=== PATIENT | female | born 1970 | race Caucasian/White ===

== ENCOUNTER → 2019-01-15 | Outpatient (CLI) | payer OTHER ==
[~2019-01-15] MED LIST: BUSPAR PO; CELEBREX 200 M200 M1 PO; ESTRACE1 MG; ESTRACE2 MG PO; ESTRADIOL 1 MG T1 M1 PO; HYDROCODON-ACE1 EAC8 PO; LEVOTHYROXIN0.125 M1 PO; LISINOPRIL20 MG PO; LUPRON DEPOT3.75 M2; MAXIDE PO; NORCO 5-325 TA1 EACH PO; PERCOCET 10-321 EACH PO; RESTORIL30 MG PO; SUMATRIPTAN; SYNTHROID150 MCG; VITAMIN D 5050000 I1 PO; YASMIN 28 TABL1 EACH; ZANAFLEX4 M2 PO; ZOFRAN ODT4 MG PO; ZOFRAN4 MG PO; ZYRTEC10 M2 PO
--- NOTE | ~2019-01-15 | PAINCON ---
[address] [address] PAIN MANAGEMENT CONSULTATION Name: MEL SANTOS Room: [facility] SOFYA Fabian.#: [id number] Admission: 01/15/19 Attend Phys: Cathryn Almendarez MD Discharge: Date of : 66 Report #: [id number] THIS REPORT FOR: //name// CC: Cathryn Varner DATE OF SERVICE: 01/15/2019 CHIEF COMPLAINT: Low back pain with some pain radiating down into the left leg and chronic back pain. HISTORY OF PRESENT ILLNESS: The patient is a 48-year-old female who has been referred to the pain clinic for evaluation. The patient has a long history of back problems. She has undergone treatment for this some years ago. Over the last 5 years, she notes that the pain continues to be problematic. 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 Notes that this long stretches of standing can exacerbate pain and discomfort. Notes that she is having some pain that radiates down the left portion of her leg involving her heel. There is a burning, stabbing sensation with it. She has had injections in the past to some degree that were helpful. Has undergone physical therapy. Continues to try to do physical activities, which had been provided in the past. Feels that the Percocet medication is helpful. She takes about 4 tablets daily as well as muscle relaxant, tizanidine. She feels that her pain overall is about 50% better. She has noted a flareup of the pain and discomfort in the feet, but recently has returned to the pain clinic for evaluation and possible treatment. She describes it as steady, rhythmic, periodic, burning in her leg and aching with sharp, tender discomfort. Rates it as a 5/10 at this point. Denies any bowel or bladder dysfunction. ALLERGIES: PENICILLIN, ERYTHROMYCIN, AZITHROMYCIN, TAPE. CURRENT MEDICATIONS: Levothyroxine 0.125 mg, lisinopril 20 mg, oxycodone/acetaminophen 10/325 one p.o. q.i.d., tizanidine 4 mg t.i.d. to q.i.d. PAST MEDICAL HISTORY: History of Graves' disease status post thyroidectomy, ulcerative colitis, degenerative osteoarthritis, obesity status post Lap-Band placement, lumbar radiculopathy, disk bulge at L4-L5 with mass effect on the thecal sac, epidural lipomatosis producing significant central spinal canal stenosis at L5-S1, and hypertension. PAST SURGICAL HISTORY: Cholecystectomy, hysterectomy, status post repair of left Achilles tendon avulsion, salpingo-oophorectomy with hysterectomy, status post thyroidectomy. SOCIAL HISTORY: She is a pharmacist. She [place] [address] PAIN MANAGEMENT CONSULTATION Name: MEL SANTOS Room: [facility]#: [id number] Admission: 01/15/19 Attend Phys: Cathryn Almendarez MD Discharge: Date of : 66 Report #: [id number] REVIEW OF SYSTEMS: Generally good health, wears glasses, wakens at night to urinate, joint pain, muscle cramps, back pain, history of thyroid disease. LABORATORY DATA: 1. No new laboratory values are available, but past MRI indicates large disk at L4-L5 with mass effect on the thecal sac. 2. Diffuse disk bulge at L3-L4 and L5-S1. 3. Epidural lipomatosis producing significant central spinal canal stenosis at L5-S1. Multiple bilateral degenerative facet arthropathy of the lumbar spine. 4. Degenerative osteoarthritis. PAIN CLINIC ASSESSMENT/PQRS: 1. The patient has osteoarthritic changes in the low back area as described below. 2. Rheumatoid arthritis. The patient is not being treated for rheumatoid arthritis. 3. Height 5 feet 5 inches, weight 240 pounds, BMI is 39. 4. Vital signs: Blood pressure 120/78, heart rate 71, respiratory rate 16, room air saturation 97%, temperature 98.5. 5. Pain intensity today 10/23. 6. Fall history: The patient has not fallen in the last 3 months. 7. Blood thinner. The patient is not on a blood thinning medication. 8. Hypertension. The patient is being treated for hypertension. 9. Opioid medicines greater than 6 weeks. The patient has been receiving her medications from her primary physician over the last few years. She states that he is going to change his practice and will not be able to provide her medications. 10. Risk assessment tool, low for opioid use. 11. Functional assessment tool. 12. Recreational drug use. The patient denies use of recreational drugs. 13. Tobacco: The patient denies use of tobacco. 14. Alcohol: The patient denies frequent use of alcoholic beverages. PHYSICAL EXAMINATION: GENERAL: The patient is a well-developed, well-nourished white female. Appears her stated age. She is alert and oriented x 3. Her affect is appropriate. Speech is fluent. HEENT: Normocephalic, atraumatic. Extraocular eye muscles intact. Sclerae nonicteric. Mucous membranes are moist. NECK: Without adenopathy or JVD. HEART: Regular rate. S1, S2. LUNGS: Clear to auscultation. ABDOMEN: Protuberant. Bowel sounds present. EXTREMITIES: Upper extremity muscle strength is judged to be 5/5 for the major muscle groups in the upper extremity. Deep tendon reflexes are +1 at the biceps bilaterally. Sensory output is normal in the upper extremity. The patient [facility] [address] [place] [address] PAIN MANAGEMENT CONSULTATION Name: DANIELLEEML Room: [facility]#: [id number] Admission: 01/15/19 Attend Phys: Cathryn Almendarez MD Discharge: Date of : 66 Report #: [id number] without significant scoliosis, kyphosis or lordosis. Lower back area. Forward bending to 90 degrees caused some slight pulling in the back of her legs, some discomfort in the left posterior L5-S1 dermatomal distribution. Left and right lateral rotation were not very problematic, but the patient did note some soreness in the low back area. Lumbar extension caused some increased pain in the low back area. Palpation in the left as well as the right posterior superior iliac spine near the gluteus joselin and latissimus dorsi produce pain and discomfort in the area of these trigger points. Deep tendon reflexes are absent at the knees bilaterally, absent at the ankles bilaterally. Anterior and posterior spring tests were negative. Gautam sign showed some signs of discomfort. The patient felt that this was in the upper portion of her back near the trigger points. ASSESSMENT: 1. Chronic low back pain with history of lumbar radiculopathy. 2. Myofascial pain with trigger points in the midline, low back area. 3. History of L5-S1 nerve root irritation with L5-S1 nerve root irritation on the left with pain radiating down from the buttocks into the ankle area. 4. Bilateral degenerative facet osteoarthritis of the lumbar spine. 5. History of Graves' disease status post thyroidectomy. 6. Ulcerative colitis. 7. Degenerative osteoarthritis. 8. Obesity status post Lap-Band placement. 9. Lumbar radiculopathy, disk bulge at L4-L5 with mass effect on the thecal sac. 10. Epidural lipomatosis producing significant central spinal canal stenosis at L5-S1. RECOMMENDATION: We discussed treatment options with the patient. Risks and benefits of epidural injections were discussed. At this point, the patient feels that the myofascial pain is the most problematic that in her low back area. She would like to consider treatment of this area. We will consider trigger point injections to the left and right posterior superior iliac spine area on her return. We have rewritten the patient's medications. She is receiving Percocet 4 tablets daily and tizanidine from her primary. She states that she only has about 10 days more of this medication. A script for tizanidine 4 mg 1 p.o. q.4-6h, #120 tablets and oxycodone 10/325 one p.o. 4-6 hours. The patient states that she keeps her medications in a guarded area. She is a pharmacist. She is aware of the possible complications of long-term opioid use, which could be problems with tolerance as well as with dependency. We would like to thank you for letting us participate in her care. We hope she continues to improve. By: [id number]. Artemio Almendarez MD /nt
== END ==
LOC: M.PC 08:00
DX: M47.26 Other spondylosis with radiculopathy, lumbar region (principal); M48.07 Spinal stenosis, lumbosacral region; I10 Essential (primary) hypertension; M19.90 Unspecified osteoarthritis, unspecified site; E89.0 Postprocedural hypothyroidism; E66.9 Obesity, unspecified; Z88.1 Allergy status to other antibiotic agents; Z90.710 Acquired absence of both cervix and uterus; Z79.899 Other long term (current) drug therapy; Z79.891 Long term (current) use of opiate analgesic; Z88.0 Allergy status to penicillin; Z91.09 Other allergy status, other than to drugs and biological substances; Z90.49 Acquired absence of other specified parts of digestive tract

== ENCOUNTER → 2019-02-12 | Outpatient (CLI) | payer OTHER ==
--- NOTE | ~2019-02-12 | PAINCON ---
[address] [address] PAIN MANAGEMENT CONSULTATION Name: DANIELLEMEL K Room: [facility] RuiBakari#: [id number] Admission: 02/12/19 Attend Phys: Cathryn Almendarez MD Discharge: Date of : 66 Report #: [id number] THIS REPORT FOR: //name// CC: Cathryn Key DATE OF SERVICE: 02/12/2019 CHIEF COMPLAINT: Back pain, here for injections in the muscle area. HISTORY: The patient is a 48-year-old female who has been seen in the pain clinic because of chronic low back pain. She has had back pain for a number of years. Has noted some increased pain and discomfort in her low back area. She notes increased pain after prolonged standing. 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. She feels that the Percocet medications are helpful. She has noted some increased pain and has returned today for renewal of her medications as well as a trigger point injection to the 2 areas in the low back, which are most problematic. ALLERGIES: PENICILLIN, ERYTHROMYCIN, AZITHROMYCIN, TAPE. CURRENT MEDICATIONS: Levothyroxine 0.125 mg, lisinopril 20 mg, oxycodone 10/325 one p.o. q.i.d., tizanidine 4 mg t.i.d/q.i.d. PAIN CLINIC ASSESSMENT/PQRS: 1. The patient has osteoarthritic changes in her low back area. She has not been treated for rheumatoid arthritis. 2. Height 5 feet 5 inches, weight 235 pounds, BMI is 39.2. 3. Vital signs: Blood pressure 123/87, heart rate 73, respiratory rate 16, room air saturation is 97%, and temperature 98.5. 4. Pain intensity 1/10 with significant soreness with movement in the low back area. 5. History of fall. The patient has not fallen in the last 3 months. 6. Blood thinner. The patient is not on a blood thinning medication. 7. Hypertension. The patient is being treated for hypertension. 8. Opioids greater than 6 weeks. The patient has received medications from one source, the pain clinic. 9. Risk assessment tool, low for opioid use. 10. Functional assessment tool. 11. Recreational drug use. The patient denies any recreational drug use. 12. Tobacco: The patient denies use of tobacco. 13. Alcohol: The patient denies frequent use of alcoholic beverages. PHYSICAL EXAMINATION: GENERAL: The patient is a well-developed, well-nourished white female. Appears her stated age, slightly obese. She is alert and oriented x 3[place] [address] PAIN MANAGEMENT CONSULTATION Name: MEL SANTOS Room: [facility]#: [id number] Admission: 02/12/19 Attend Phys: Cathryn Almendarez MD Discharge: Date of : 66 Report #: [id number] appropriate. Speech is fluent. HEENT: Normocephalic, atraumatic. Extraocular eye muscles intact. NECK: Without adenopathy or JVD. HEART: Regular rate. S1, S2. LUNGS: Clear to auscultation. ABDOMEN: Nontender. Bowel sounds present. EXTREMITIES: Upper extremity muscle strength judged to be 5/5 for the major muscle groups in the upper extremity. The patient without significant scoliosis, kyphosis or lordosis. Palpation in the low back area in the midline at approximately L5, and the mid paraspinous area is tender to palpation. The patient has greater pain and discomfort in the left as well as the right paraspinous areas at the L5-S1 area. This is near the posterior superior iliac spine area on both these 2 areas of pain supercede that in the midline area. IMPRESSION: 1. Myofascial pain, low back area, left and right posterior superior iliac spine area. Myofascial trigger points in the low back area. 2. History of L5-S1 nerve root irritation with pain that radiates down to the ankle. 3. Bilateral degenerative facet arthropathy of the lumbar spine. 4. History of Graves' disease, status post thyroidectomy. 5. Ulcerative colitis. 6. Degenerative osteoarthritis. 7. Obesity, status post lap band placement. 8. Lumbar radiculopathy with bulging disk at L4-L5 with mass effect on the thecal sac. 9. Epidural lipomatosis producing significant central spinal canal stenosis at L5-S1. RECOMMENDATIONS: We discussed treatment options with the patient. Risks and benefits of a trigger point injection to the affected areas were discussed. The patient has agreed to proceed. Risks and benefits of the procedure, which could include infection, worsening of pain, no improvement in pain, nerve damage, numbness in the lower extremity for a period of time were discussed and the patient elects to proceed. PROCEDURE NOTE: The patient was taken to the procedure area. She is assisted in getting on the examination table. She is set perpendicular to the table. A chair was placed under her feet. The patient was given a pillow and she leaned forward ____ tie her shoe. Palpation in the left and the right posterior superior iliac spine areas reproduced her pain. Her back was sterilely prepped with a chlorhexidine solution. A trigger point was noted in the left posterior superior iliac spine area near the gluteus joselin and latissimus dorsi. A 25-gauge needle was then advanced. The patient states that this did reproduce her pain and discomfort. Aspiration was negative. Total of 6 mL of 0.5% bupivacaine and 20 mg triamcinolone with 40 mg Depo-[place] [address] PAIN MANAGEMENT CONSULTATION Name: MEL SANTOS Room: [facility]#: [id number] Admission: 02/12/19 Attend Phys: Cathryn Almendarez MD Discharge: Date of : 66 Report #: [id number] contralateral right side was treated in a like fashion. A 25-gauge needle was then advanced to the area of the trigger point near the gluteus joselin and latissimus dorsi. Aspiration was negative. The patient states that this did reproduce her discomfort. A total of 6 mL of 0.5% bupivacaine and 40 mg Depo-Medrol with 20 mg triamcinolone was injected. The patient tolerated the procedure well. She remained in the Pain Clinic for an appropriate amount of time. The patient's script for Percocet 10/325 one p.o. q.i.d. and tizanidine 4 mg one p.o. q. 4-6 hours were written. The patient will call us if she has any concerns. We would like to thank you for letting us participate in her care. Hope she continues to improve. By: [id number]. Artemio Almendarez MD /will
== END | disposition home or self-care (01) ==
LOC: M.PC 04:49
DX: M79.18 Myalgia, other site (principal); M51.16 Intervertebral disc disorders with radiculopathy, lumbar region; M47.26 Other spondylosis with radiculopathy, lumbar region; M48.061 Spinal stenosis, lumbar region without neurogenic claudication; M19.90 Unspecified osteoarthritis, unspecified site; I10 Essential (primary) hypertension; E89.0 Postprocedural hypothyroidism; E66.09 Other obesity due to excess calories; Z88.0 Allergy status to penicillin; Z88.8 Allergy status to other drugs, medicaments and biological substances; Z87.19 Personal history of other diseases of the digestive system; Z79.899 Other long term (current) drug therapy; Z79.891 Long term (current) use of opiate analgesic; Z98.890 Other specified postprocedural states; Z68.39 Body mass index [BMI] 39.0-39.9, adult

== ENCOUNTER → 2019-03-10 | Outpatient (CLI) | payer OTHER ==
[~2019-03-10] MED LIST changes: +FLEXERIL PO; +MEDROLDOSEPACK PO
--- NOTE | 2019-03-12 01:33 | PAINCON ---
[address] [address] PAIN MANAGEMENT CONSULTATION Name: DANIELLEMEL K Room: [facility] VioletteVandana#: [id number] Admission: 03/10/19 Attend Phys: Cathryn Almendarez MD Discharge: Date of : 66 Report #: [id number] THIS REPORT FOR: //name// CC: Cathryn Key DATE OF SERVICE: 03/10/2019 CHIEF COMPLAINT: Mid back pain and some pain in the hips. FOLLOWUP HISTORY: The patient is a 48-year-old female who has been seen in the pain clinic because of chronic low back pain. She has had pain for a number of years. She has noticed an increase in her pain. She underwent trigger point injection at the last visit. She has noticed that her pain level has continued to escalate. It is at a score of 6/10. She describes it as a very severe flare up over the past few days. She is unable to rest, unable to sit comfortably. She is not sure that tizanidine is providing very much muscle relaxation. Feels that the Percocet medications are helpful. She notes that the pain is limiting her ability to engage in activities. 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 She has returned today for the possibility of changes in her medications or other ideas. ALLERGIES: PENICILLIN, ERYTHROMYCIN, AZITHROMYCIN, TAPE. CURRENT MEDICATIONS: Levothyroxine 0.125 mg, lisinopril 20 mg, oxycodone 10/325 one p.o. q.i.d., tizanidine 4 mg 1 p.o. t.i.d./q.i.d. PAIN CLINIC ASSESSMENT AND PQRS: 1. The patient has some osteoarthritic changes in her low back area. She has not been treated for rheumatoid arthritis. 2. Height 5 feet 5 inches, weight 235 pounds, BMI of 39.0. 3. Vital Signs: Blood pressure 117/77, heart rate 93, respiratory rate 16, room air saturation 99%, temperature 98.5. 4. Pain intensity 03/23. 5. Fall history: The patient has not fallen in the last 3 months. 6. Blood thinner. The patient is not on a blood thinning medication. 7. Hypertension. The patient is being treated for hypertension. 8. Opioids greater than 6 weeks. The patient received medication from one source, the pain clinic. 9. Risk assessment tool, low for opioid use. 10. Functional assessment tool. 11. Recreational drug use. The patient denies. 12. Tobacco: The patient denies use of tobacco. 13. Alcohol: The patient denies use of alcoholic beverages. PHYSICAL EXAMINATION: [place] [address] PAIN MANAGEMENT CONSULTATION Name: DANIELLECARMENEmy Webb Room: [facility]#: [id number] Admission: 03/10/19 Attend Phys: Cathryn Almendarez MD Discharge: Date of : 66 Report #: [id number] GENERAL: The patient is a well-developed, well-nourished white female. Appears her stated age. She is slightly obese. She is alert and oriented x 3. Her affect is appropriate. Speech is fluent. HEENT: Normocephalic, atraumatic. Extraocular eye muscles intact. Sclerae nonicteric. Mucous membranes are moist. NECK: Without adenopathy or JVD. HEART: Regular rate. S1, S2. LUNGS: Clear to auscultation. ABDOMEN: Nontender. Bowel sounds present. EXTREMITIES: Upper extremity muscle strength judged to be 5/5 for the major muscle groups in the upper extremity. The patient is without kyphosis, scoliosis or lordosis. Palpation in the midline area of the patient's back at approximately L2, L3, L4 are quite sore to palpation. The patient also complains of some pain and discomfort in her hips. She seems to have less pain and discomfort in the left and right paraspinous areas near L5 and S1. The midline area is most problematic at this juncture. The midline area pain now supercedes that in the left and right paraspinous areas. IMPRESSION: 1. Myofascial pain, low back area, midline area most problematic. Less pain in the posterior superior iliac spine areas. 2. History of L5-S1 nerve root irritation with pain that radiates down into her ankle. 3. Bilateral degenerative facet arthropathy of the lumbar spine. 4. History of Graves' disease, status post thyroidectomy. 5. Ulcerative colitis. 6. Degenerative osteoarthritis. 7. Obesity, status post lap band placement, unable to take nonsteroidal anti-inflammatory medications. 8. Lumbar radiculopathy with bulging disks at L4-L5 with mass effect upon the thecal sac. 9. Epidural lipomatosis producing significant central spinal stenosis at L5-S1. RECOMMENDATIONS: We discussed treatment options with the patient. At this juncture, we will continue with her oxycodone medication. She will take 10 mg 1 p.o. q.i.d. The patient will also try Flexeril 10 mg 1 p.o. t.i.d. She will try a Medrol Dosepak. She will consider whether or not she would like to return with injection in the midline area for the myofascial pain at this juncture. A script for her medications have been written. She has been given a script for a Medrol Dosepak 21 tablets to take as directed. She will also continue with Flexeril 10 mg t.i.d. and note its efficacy. A refill of oxycodone 10/325, total of 120 [place] [address] PAIN MANAGEMENT CONSULTATION Name: MEL SANTOS Room: [facility]#: [id number] Admission: 03/10/19 Attend Phys: Cathryn Almendarez MD Discharge: Date of : 66 Report #: [id number] We would like to thank you for letting us participate in her care. We hope she continues to improve. <ELECTRONICALLY SIGNED> By: Cathryn Almendarez MD 03/12/19 [id number]. Artemio Almendarez MD /JOEL
== END ==
LOC: M.PC 09:38
DX: M51.16 Intervertebral disc disorders with radiculopathy, lumbar region (principal); M48.07 Spinal stenosis, lumbosacral region; M12.88 Other specific arthropathies, not elsewhere classified, other specified site; M79.10 Myalgia, unspecified site; E66.9 Obesity, unspecified; K51.90 Ulcerative colitis, unspecified, without complications; D17.79 Benign lipomatous neoplasm of other sites; Z86.39 Personal history of other endocrine, nutritional and metabolic disease; Z68.39 Body mass index [BMI] 39.0-39.9, adult

== ENCOUNTER → 2019-04-09 | Outpatient (CLI) | payer OTHER ==
--- NOTE | 2019-04-15 14:27 | PAINCON ---
[address] [address] PAIN MANAGEMENT CONSULTATION Name: DANIELLEMEL K Room: [facility] RuiBakari#: [id number] Admission: 04/09/19 Attend Phys: Cathryn Almendarez MD Discharge: Date of : 66 Report #: [id number] THIS REPORT FOR: //name// CC: Cathryn Key DATE OF SERVICE: 04/09/2019 CHIEF COMPLAINT: Mid back pain is improved after the Medrol Dosepak. HISTORY: The patient is a 48-year-old female who has been followed in the pain clinic because of chronic mid back and low back pain. The patient has had pain, which has been problematic for a number of years. She was seen in the pain clinic at the last visit. Her pain level was increased to 6/10. She was provided with a Medrol Dosepak and her medications. She returns today indicating that her pain has improved. It has decreased to 1. Overall, she is happy with the results. Feels like she is close to her baseline. Notes that pain such as standing can had been somewhat problematic. 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 She has returned today for renewal of her medications. ALLERGIES: PENICILLIN, ERYTHROMYCIN, AZITHROMYCIN, TAPE. CURRENT MEDICATIONS: Levothyroxine 0.125 mg, lisinopril 20 mg, oxycodone 10/325 one p.o. q.i.d., tizanidine 4 mg 1 p.o. t.i.d./q.i.d. PAIN CLINIC ASSESSMENT/PQRS: 1. The patient has some osteoarthritic changes in her low back area. She has not been treated for rheumatoid arthritis. 2. Height 5 feet 5 inches, weight 234 pounds, BMI is 38.9. 3. Vital Signs: Blood pressure 107/58, heart rate 100, respiratory rate 16, room air saturation 98%, temperature is 98.2. 4. Pain intensity 10/23. 5. Fall history: The patient has not fallen in the last 3 months. 6. Blood thinner. The patient is not on a blood thinning medication. 7. Hypertension. The patient is being treated for hypertension. 8. Opiates greater than 6 weeks. The [facility]. 9. Risk assessment tool, low for opioid use. 10. Functional assessment tool. 11. Recreational drug use. The patient denies. 12. Tobacco: The patient denies. 13. Alcohol: The patient denies use of alcoholic beverages. PHYSICAL EXAMINATION: GENERAL: The patient is a well-developed, well-[place] [address] PAIN MANAGEMENT CONSULTATION Name: MEL SANTOS Room: [facility]#: [id number] Admission: 04/09/19 Attend Phys: Cathryn Almendarez MD Discharge: Date of : 66 Report #: [id number] her stated age. She is alert and oriented x 3. Her affect is appropriate. Speech is fluent. HEAD, EYES, EARS, NOSE, AND THROAT: Normocephalic, atraumatic. Extraocular eye muscles intact. Sclerae nonicteric. Mucous membranes are moist. NECK: Without adenopathy or JVD. HEART: Regular rate. S1, S2. LUNGS: Clear to auscultation without rhonchi. ABDOMEN: Nontender. Bowel sounds present. EXTREMITIES: Upper extremity muscle strength 5/5 for the major muscle groups in the upper extremity. The patient without significant scoliosis, kyphosis or lordosis. The patient also complains of some discomfort in her hips. Midline area is less problematic at this point. IMPRESSION: 1. Myofascial pain in the low back area, improves with a Medrol Dosepak and rest in activities. 2. History of L5-S1 nerve root irritation with radiation to the ankle. 3. Bilateral degenerative facet arthropathy of lumbar spine. 4. History of Graves' disease, status post thyroidectomy. 5. Ulcerative colitis. 6. Degenerative osteoarthritis. 7. Obesity, status post lap band placement, unable to take nonsteroidal anti-inflammatory medications. 8. Lumbar radicular pain with bulging of disk at L4-L5 with mass effect upon the thecal sac. 9. Epidural lipomatosis producing significant central spinal stenosis at L5-S1. RECOMMENDATIONS: We discussed treatment options with the patient. The patient feels that her medications have been helpful. She notes that the Medrol Dosepak was beneficial. She has noted an improvement in her pain down from 6-1 at this point. She has returned today with the desire to have her medications renewed. She finds that the tizanidine medications have not been very effective for her. She elects to discontinue its use. Feels that the Flexeril medication is helpful for the muscle spasm and would like to have this medication renewed. Finds that Percocet 1 tablet p.o. q.i.d. continues to be helpful. These helped with her pain. Helps her to maintain her job and remain gainfully employed. We will continue with her medications. We will continue use of the complex medication regimen of opioid medications. We would like to thank you for letting us to participate in her care. We hope she continues to improve. <ELECTRONICALLY SIGNED> By: Cathryn Almendarez MD 04/15/19 1427 1630 [id number]. Artemio Almendarez MD /[facility]
== END ==
LOC: M.PC 05:01
DX: M54.16 Radiculopathy, lumbar region (principal); M48.07 Spinal stenosis, lumbosacral region; E66.9 Obesity, unspecified; M19.90 Unspecified osteoarthritis, unspecified site; M79.18 Myalgia, other site

== ENCOUNTER → 2019-05-07 | Outpatient (CLI) | payer OTHER ==
--- NOTE | ~2019-05-07 | PAINCON ---
[address] [address] PAIN MANAGEMENT CONSULTATION Name: CARMEN SANTOSI Tracey Room: [facility] Maxime#: [id number] Admission: 05/07/19 Attend Phys: Cathryn Almendarez MD Discharge: Date of : 66 Report #: [id number] THIS REPORT FOR: //name// CC: Cathryn Key DO DATE OF SERVICE: 05/07/2019 FOLLOWUP COMPLAINT: Here for medication management. HISTORY: The patient is a 48-year-old female who has been followed in the pain clinic because of chronic pain. She has chronic pain in the lower back area. She has had pain, which has been problematic for years. Overall, her pain has been improved with her current medical regimen of Flexeril and Percocet. She has had some exacerbation of her pain, which improved with a Medrol Dosepak. She has had no complications from that. She is being treated for thyroid problems. Feels that there is still some changes and her heart rate reflect some increased tachycardia. She rates her pain as a 2/10. This is pretty good. Notes that the pain becomes more problematic by the time work ends. 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 ALLERGIES: PENICILLIN, ERYTHROMYCIN, AZITHROMYCIN, AND TAPE. CURRENT MEDICATIONS: Levothyroxine 0.125 mg, lisinopril 20 mg, oxycodone 10/325 one p.o. q.i.d., tizanidine 4 mg 1 p.o. t.i.d./q.i.d. PAIN CLINIC ASSESSMENT/PQRS: 1. The patient has some osteoarthritic changes in her low back. She is not being treated for rheumatoid arthritis. 2. Height 5 feet 5 inches, weight 233 pounds, BMI is 38.0. 3. Vital signs: Blood pressure 105/65, heart rate 102, respiratory rate 16, room air saturation 98%, temperature 98.4. 4. Pain intensity 11/23. 5. Fall history: The patient has not fallen in the last 3 months. 6. Blood thinner. The patient is not on a blood thinning medication. 7. Hypertension. The patient is being treated for hypertension. 8. Opioids greater than 6 weeks. The [facility]. 9. Risk assessment tool, low for opioid use. 10. Functional assessment tool. 11. Recreational drug use. The patient denies. 12. Tobacco: The patient denies. 13. Alcohol: The patient denies use of alcoholic beverages. PHYSICAL EXAMINATION: [address] [place] [address] PAIN MANAGEMENT CONSULTATION Name: MEL SANTOS Room: [facility]#: [id number] Admission: 05/07/19 Attend Phys: Cathryn Almendarez MD Discharge: Date of : 66 Report #: [id number] GENERAL: The patient is a well-developed, well-nourished, somewhat obese white female, appears her stated age. She is alert and oriented x 3. Her affect is appropriate. Speech is fluent. HEENT: Normocephalic, atraumatic. Extraocular eye muscles intact. Sclerae nonicteric. Mucous membranes are moist. NECK: Without adenopathy. HEART: Regular rate. S1, S2. Tachycardic at 102. LUNGS: Clear to auscultation without rhonchi or rales. ABDOMEN: Protuberant. Bowel sounds present. EXTREMITIES: Upper extremities without complaint, 5/5 muscle strength. The patient without significant scoliosis, kyphosis, or lordosis. The patient has some pain and discomfort in the lower portion of her back. It involves her hips. There is a midline area that is more problematic. Muscle strength in the lower extremities judged to be 5/5 for the major muscle groups in the lower extremities. IMPRESSION: 1. Myofascial pain, low back area, improves with a Medrol Dosepak and rest. 2. History of L5-S1 nerve root irritation and radiation to the ankle. 3. Bilateral degenerative facet arthropathy of the lumbar spine. 4. History of Graves' disease, status post thyroidectomy. 5. Ulcerative colitis. 6. Degenerative osteoarthritis. 7. Obesity, status post Lap-Band placement, unable to take nonsteroidal anti-inflammatory medication secondary to this procedure. 8. Lumbar radiculopathy with pain and bulging disks at L4-L5 with mass effect upon the thecal sac. 9. Epidural lipomatosis producing significant central spinal stenosis at L5-S1. RECOMMENDATIONS: We discussed treatment options with the patient. She feels that her medications are working reasonably well. She would like to have an additional Medrol Dosepak in the event that her pain reaches a level that has not helped with her current medication. States that this is episodic and would like to just have 1 tablet since she needed. We will write for the Medrol Dosepak. The patient will also continue with Flexeril 10 mg 1 p.o. t.i.d. This is helpful with muscle spasms. She will continue with the oxycodone 10/325 one p.o. t.i.d. as needed for pain control. This helps the patient, will be able to stay gainfully employed. She states she has taken medications as prescribed. She is not having any side effects from the medication. She is alert and aware that opioid medications can become less effective as time goes on, secondary to tolerance. She states that she has taken the medication as prescribed. Keeps her medications in a guarded area. I would like to have her medications renewed this month. A script for her medications of a Medrol Dosepak, Flexeril 10 mg 1 p.o. t.i.d., total of 90 tablets, and Percocet 10/325 one p.o. 4-6 hours [address] [place] [address] PAIN MANAGEMENT CONSULTATION Name: MEL SANTOS Room: [facility]#: [id number] Admission: 05/07/19 Attend Phys: Cathryn Almendarez MD Discharge: Date of : 66 Report #: [id number] tablets have been written. We would like to thank you for letting us participate in her care. We hope she continues to improve. By: 0830 [id number]. Artemio Almendarez MD /[facility]
== END ==
LOC: M.PC 05:09
DX: Z76.0 Encounter for issue of repeat prescription (principal); M54.16 Radiculopathy, lumbar region; M19.90 Unspecified osteoarthritis, unspecified site; E66.9 Obesity, unspecified; I10 Essential (primary) hypertension; Z88.1 Allergy status to other antibiotic agents; Z88.0 Allergy status to penicillin; Z88.8 Allergy status to other drugs, medicaments and biological substances; Z79.891 Long term (current) use of opiate analgesic; Z79.899 Other long term (current) drug therapy

== ENCOUNTER → 2019-06-04 | Outpatient (CLI) | payer OTHER | LOC: M.PC 02:14 | DX: M54.5 Low back pain (principal); M79.604 Pain in right leg; Z79.899 Other long term (current) drug therapy ==

== ENCOUNTER → 2019-07-02 | Outpatient (CLI) | payer OTHER ==
[~2019-07-02] MED LIST changes: +SYNTHROID100 MC1 PO
--- NOTE | 2019-07-06 09:16 | PAINCON ---
[address] [address] PAIN MANAGEMENT CONSULTATION Name: DANIELLEMEL K Room: [facility] Maxime#: [id number] Admission: 07/02/19 Attend Phys: Cathryn Almendarez MD Discharge: Date of : 66 Report #: [id number] THIS REPORT FOR: //name// CC: Cathryn Key DATE OF SERVICE: 07/02/2019 CHIEF COMPLAINT: Here for my medication, they are making some adjustments to my medications because of my Graves' disease. HISTORY: The patient is a 48-year-old female, who has been followed in the pain clinic because of chronic pain. She has pain involving her low back. She feels that her medications for pain are working reasonably well. She rates her pain today as a 2/10. She is contemplating her son's marriage. They will be in the next couple of weeks. She has been putting most of her efforts in that area. She has noted some increase in her heart rate because of the Graves' disease. She denies any new changes or real complaints. She notes that she has pain with sitting, standing, bending, and lifting. Use of medications, are beneficial. CURRENT MEDICATIONS: Levothyroxine 0.125 mg, lisinopril 20 mg, oxycodone 10/325 one p.o. q.i.d., tizanidine 4 mg 1 p.o. t.i.d./q.i.d. ALLERGIES: PENICILLIN, ERYTHROMYCIN, AZITHROMYCIN, AND TAPE. PAIN CLINIC ASSESSMENT AND PQRS: 1. The patient has some osteoarthritic changes involving her back. She is not being treated for rheumatoid arthritis. 2. Pain intensity is 2/10. 3. Fall history: The patient has not fallen in the last 3 months. 4. Blood thinner. The patient is not on a blood thinning medication. 5. Hypertension. The patient is being treated for hypertension. 6. Opioids greater than 6 weeks. The [facility]. 7. Risk assessment tool, low for opioid use. 8. Functional assessment tool. 9. Recreational drug use. The patient denies. 10. Tobacco: The patient denies. 11. Alcohol. The patient denies use of alcoholic beverages. PHYSICAL EXAMINATION: GENERAL: The patient is a slightly obese white female. She appears her stated age. She is alert and oriented x 3. Her affect is appropriate. Speech is fluent. Height is 5 feet 5 inches, weight is 233 pounds, and BMI is 38. VITAL SIGNS: Blood pressure is 116/69, heart rate is 98, respiratory rate is [facility] [address] [place] [address] PAIN MANAGEMENT CONSULTATION Name: DANIELLEMEL K Room: [facility]#: [id number] Admission: 07/02/19 Attend Phys: Cathryn Almendarez MD Discharge: Date of : 66 Report #: [id number] 20, room air saturation is 95%, and temperature is 98.4. HEENT: Normocephalic, atraumatic. Extraocular eye muscles intact. Sclerae nonicteric. Mucous membranes are moist. NECK: Without adenopathy or JVD. HEART: Regular rate. S1, S2. LUNGS: Clear to auscultation without rhonchi or rales. ABDOMEN: Nontender, protuberant. SKIN: Some signs of pigment discoloration, appears to be vitiligo. IMPRESSION: 1. Lumbar radiculopathy with bulging disk at L4-L5 with mass effect upon the thecal sac. 2. Epidural lipomatosis producing significant central canal spinal stenosis at L5-S1. RECOMMENDATIONS: We have discussed treatment options with the patient. At this juncture, she will continue with her medications. She feels her medications are working reasonably well. She is noting some changes in her health regarding the Graves' disease. She states that some changes in her medications are being made. Overall, things are going reasonably well. She has taken the medication as prescribed. 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 She has not shown any addictive behaviors. She is aware that the medications can become less effective over time secondary to development of tolerance. A script for her medications of oxycodone 10 mg/325 one p.o. q.4-6 hours, total of 120 tablets and cyclobenzaprine/Flexeril 10 mg 1 p.o. t.i.d. have been written. We would like to thank you for letting us to participate in her care. We hope she continues to improve. <ELECTRONICALLY SIGNED> By: Cathryn Almendarez MD 07/06/19 0916 0833 [id number]. Artemio Almendarez MD /[facility]
== END ==
LOC: M.PC 05:04
DX: M54.16 Radiculopathy, lumbar region (principal); E88.2 Lipomatosis, not elsewhere classified; Z79.899 Other long term (current) drug therapy; Z88.8 Allergy status to other drugs, medicaments and biological substances

== ENCOUNTER → 2019-07-30 | Outpatient (CLI) | payer OTHER ==
--- NOTE | 2019-08-05 09:09 | PAINCON ---
[address] [address] PAIN MANAGEMENT CONSULTATION Name: MEL SANTOS Room: [facility] VioletteBakariJadeBakari#: [id number] Admission: 07/30/19 Attend Phys: Cathryn Almendarez MD Discharge: Date of : 66 Report #: [id number] THIS REPORT FOR: //name// CC: Cathryn Key DO DATE OF SERVICE: 07/30/2019 CHIEF COMPLAINT: Here for medication renewal. HISTORY: The patient is a 48-year-old female who has been followed in the pain clinic because of chronic low back pain as well as left leg pain. She feels that the medications have been helpful. She notes that prolonged standing on her right leg has been problematic. She does work about half time as a pharmacist. She has found that the use of Medrol Dosepak episodically, has been helpful with pain and discomfort. She also feels that the muscle relaxant, cyclobenzaprine has been beneficial. She feels that overall with her current medical regimen, things are about 50% improved. She does not have any problems with the medications. She does have Graves' disease. Has had some elevated heart rates and continues to follow up with her primary in that regard. ALLERGIES: PENICILLIN, ERYTHROMYCIN, AZITHROMYCIN, AND TAPE. CURRENT MEDICATIONS: Levothyroxine 0.125 mg, lisinopril 20 mg, oxycodone 10/325 one p.o. q.i.d., tizanidine 4 mg 1 p.o. t.i.d./q.i.d. PAIN CLINIC ASSESSMENT/PQRS: 1. The patient has some osteoarthritic changes involving her back. She is not being treated for rheumatoid arthritis. 2. Height 5 feet 5 inches, weight 235 pounds, BMI is 39. 3. Vital signs: Blood pressure is 111/65, heart rate 106, respiratory rate 16, room air saturation is 96%, temperature 97.8. 4. Pain intensity 12/21. 5. Fall history: The patient has not fallen in the last 3 months. 6. Blood thinner. The patient is not on a blood thinning medication. 7. Hypertension. The patient is being treated for hypertension. 8. Opioids greater than 6 weeks. The [facility]. 9. Risk assessment tool, low for opioid use. 10. Functional assessment tool. 11. Recreational drug use. The patient denies. 12. Tobacco: The patient denied. 13. Alcohol. The patient denies frequent use of alcoholic beverages. PHYSICAL EXAMINATION: [address] [place] [address] PAIN MANAGEMENT CONSULTATION Name: MEL SANTOS Room: [facility]#: [id number] Admission: 07/30/19 Attend Phys: Cathryn Almendarez MD Discharge: Date of : 66 Report #: [id number] GENERAL: The patient is a slightly obese white female, appears her stated age. She is alert and oriented x 3. Her affect is appropriate. Speech is fluent. HEENT: Normocephalic, atraumatic. Extraocular eye muscles intact. Sclerae are nonicteric. Mucous membranes are moist. NECK: Without adenopathy or JVD. HEART: Regular rate, somewhat tachycardic at 106. ABDOMEN: Nontender. LUNGS: Clear. SKIN: With discoloration associated with a depigmentation secondary to vitiligo. IMPRESSION: 1. Lumbar radiculopathy with bulging disk at L4-L5 with mass effect upon the thecal sac. 2. Epidural lipomatosis producing significant central canal spinal stenosis at L5-S1. RECOMMENDATIONS: We discussed treatment options with the patient. At this juncture, we will continue with her medications as prescribed. She will continue with Percocet 10 mg 1 p.o. q.i.d. She finds that the cyclobenzaprine is helpful with muscle spasms t.i.d. and the patient takes episodically 4 mg tab of prednisone p.r.n. during the month to help with pain when her pain becomes most problematic. She continues to be followed up with her primary physician regarding her Graves' disease. We will continue with her complex medical management to help control her pain and discomfort. <ELECTRONICALLY SIGNED> By: Cathryn Almendarez MD 08/05/19 0909 0901 1034N. Artemio Almendarez MD /nt
== END ==
LOC: M.PC 04:39
DX: M51.26 Other intervertebral disc displacement, lumbar region (principal); Z88.0 Allergy status to penicillin; Z88.8 Allergy status to other drugs, medicaments and biological substances; Z79.899 Other long term (current) drug therapy

== ENCOUNTER → 2019-08-27 | Outpatient (CLI) | payer OTHER ==
--- NOTE | 2019-08-31 19:22 | PAINCON ---
[address] [address] PAIN MANAGEMENT CONSULTATION Name: DANIELLEMEL K [facility]: [facility] OakesBakariJadeBakari#: [id number] Admission: 08/27/19 Attend Phys: Cathryn Almendarez MD Discharge: Date of : 66 Report #: [id number] THIS REPORT FOR: //name// CC: Cathryn Key DO DATE OF SERVICE: 08/27/2019 CHIEF COMPLAINT: Pain medicine is helpful. HISTORY: The patient is a 48-year-old female who has been followed in the pain clinic. As you recall, she suffers from lumbar radicular pain. She has some spinal stenosis in the lower portion of her back. She has found Flexeril helpful with muscle spasms. She would like to continue with that medication. She is not having any side effects. She has also found Percocet helpful. 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 She feels that her current medical regimen has been helpful. She is able to engage in activities of daily living with less discomfort. Rates her pain as a 2-3 at this point. Overall, she feels that things are about 50% improved with her current regimen. Bending, lifting and twisting are problematic. She had a bad day yesterday. Overall, the past month has been pretty good. She does have a Medrol Dosepak, which she can take on occasion. She did not have to use it this month. ALLERGIES: PENICILLIN, ERYTHROMYCIN, AZITHROMYCIN, TAPE. CURRENT MEDICATIONS: Levothyroxine 0.125 mg, lisinopril 20 mg, oxycodone 10/325 one p.o. q.i.d., tizanidine 4 mg 1 p.o. t.i.d./q.i.d. PAIN CLINIC ASSESSMENT AND PQRS: 1. The patient is not being treated for osteoarthritis or rheumatoid arthritis. She does have some changes in her low back with stenosis. 2. Height 5 feet 5 inches, weight 232 pounds, BMI is 38.8. 3. Vital Signs: Blood pressure 116/78, heart rate 107, respiratory rate 16, room air saturation 98%, temperature 98.2. 4. Pain intensity 2-3/10. 5. Fall history: The patient has not fallen in the last 3 months. 6. Blood thinner. The patient is not on a blood thinning medication. 7. Hypertension. The patient is being treated for hypertension. 8. Opioids greater than 6 weeks. The [facility]. 9. Risk assessment tool, low for opioid use. 10. Functional assessment tool was reviewed. 11. Recreational drug use: [place] [address] PAIN MANAGEMENT CONSULTATION Name: DANIELLECARMEN HELLEREmy Webb Room: [facility]#: [id number] Admission: 08/27/19 Attend Phys: Cathryn Almendarez MD Discharge: Date of : 66 Report #: [id number] 12. Tobacco: The patient denies. 13. Alcohol: The patient denies frequent use of alcoholic beverages. PHYSICAL EXAMINATION: GENERAL: The patient is a well-developed, well-nourished white female. Slightly obese. She is alert and oriented x 3. Her affect is appropriate. Speech is fluent. HEENT: Normocephalic, atraumatic. Extraocular eye muscles intact. Sclerae nonicteric. Mucous membranes are moist. NECK: Without adenopathy or JVD. ABDOMEN: Nontender. LUNGS: Clear to auscultation. SKIN: Shows some discoloration associated with findings consistent with vitiligo. IMPRESSION: 1. Lumbar radiculopathy with bulging disk at L4-L5 with mass effect upon the thecal sac. 2. Epidural lipomatosis producing central spinal stenosis at L1-L2. 3. Hypothyroidism. 4. History of Graves' disease, status post thyroidectomy. 5. Ulcerative colitis. 6. Degenerative osteoarthritis. 7. Obesity, status post lap band placement, unable to use nonsteroidal anti-inflammatory medications. 8. Myofascial pain. RECOMMENDATIONS: We discussed treatment options with the patient. At this juncture, she will continue with her medications. She feels the medications are helpful. She is able to conduct her activities of daily living with less discomfort. We will continue with the Percocet. A script for 120 tablets has been written. The patient will take one tablet p.o. q.4 hours p.r.n. The patient will also continue with Flexeril. She finds that this is helpful with the muscle spasms and myofascial pain, which she is experiencing. We will have the patient return in 1 month. We will continue with the use of complex medical management to help control her pain and discomfort secondary to spinal stenosis and lumbar radiculopathy. <ELECTRONICALLY SIGNED> By: Cathryn Almendarez MD 08/31/19 1922 0850 0934N. Artemio Almendarez MD /nt
== END ==
LOC: M.PC 05:13
DX: M51.16 Intervertebral disc disorders with radiculopathy, lumbar region (principal); M48.061 Spinal stenosis, lumbar region without neurogenic claudication; E03.9 Hypothyroidism, unspecified; K51.90 Ulcerative colitis, unspecified, without complications; M19.90 Unspecified osteoarthritis, unspecified site

== ENCOUNTER → 2019-09-24 | Outpatient (CLI) | payer OTHER ==
--- NOTE | 2019-09-30 13:30 | PAINCON ---
[address] [address] PAIN MANAGEMENT CONSULTATION Name: DANIELLEMEL K Room: [facility] SOFYA OakesBakariJadeBakari#: [id number] Admission: 09/24/19 Attend Phys: Cathryn Almendarez MD Discharge: Date of : 66 Report #: [id number] THIS REPORT FOR: //name// CC: Cathryn Key DATE OF SERVICE: 09/24/2019 CHIEF COMPLAINT: Chronic pain in the low back and down the right leg. HISTORY: The patient is a 48-year-old female who has been followed in the Pain Clinic because of chronic pain. She has returned indicating that her pain is reasonably well controlled at this juncture. She rates her pain as a 2/10. She has not fallen since we saw her last. Still has pain, which is involved the center portion of her low back area. Notes some pain that radiates from her right leg down into the side of her leg. She also has on occasion some pain in the left side. She feels that her medications of Flexeril helpful for muscle spasms. She notes that long standing exacerbates her spinal stenosis. She remains as active as possible. She does work and does quite a bit of standing on her job. This does exacerbate her discomfort to a degree. Does note some burning discomfort down into her leg. She has had no significant changes in her symptoms since the past month. She was returned today with hopes that she will renew her medications. Notes that she is 50-60% improved with her current medical regimen. ALLERGIES: PENICILLIN, ERYTHROMYCIN, AZITHROMYCIN, AND TAPE. CURRENT MEDICATIONS: Levothyroxine 0.125 mg, lisinopril 20 mg, oxycodone 10 mg one p.o. q.i.d., and tizanidine 4 mg 1 p.o. t.i.d. /q.i.d. PAIN CLINIC ASSESSMENT AND PQRS: 1. The patient is not being treated for rheumatoid arthritis. She does have some osteoarthritic changes in her back with stenosis. 2. Height 5 feet 5 inches, weight 234 pounds, BMI is 39. 3. Vital signs: Blood pressure 122/68, heart rate 94, respiratory rate 16, room air saturation 97%, and temperature is 97.3. 4. Pain score 2/10. 5. Fall history: The patient has not fallen in the last 3 months. 6. Blood thinner. The patient is not on a blood thinning medication. 7. Hypertension. The patient is being treated for hypertension. 8. Opioids greater than 6 weeks. The [facility]. 9. Risk assessment tool, low for opioid use. 10. Functional assessment tool, low for opioid use. 11. Recreational drug use: The patient denies. 12. Tobacco: [place] [address] PAIN MANAGEMENT CONSULTATION Name: MEL SANTOS Room: [facility]#: [id number] Admission: 09/24/19 Attend Phys: Cathryn Almendarez MD Discharge: Date of : 66 Report #: [id number] 13. Alcohol: The patient rarely drinks alcoholic beverages. PHYSICAL EXAMINATION: GENERAL: The patient is a well-developed, well-nourished white female. Slightly obese. She is alert and oriented x 3. Her affect is appropriate. Speech is fluent. HEENT: Normocephalic, atraumatic. Extraocular eye muscles intact. The patient is wearing glasses. NECK: Without adenopathy or JVD. ABDOMEN: Nontender. LUNGS: Clear to auscultation. SKIN: Shows some discoloration associated with vitiligo. IMPRESSION: 1. Lumbar radiculopathy in the L4-L5 dermatomal distribution with mass effect upon the thecal sac. 2. Epidural lipomatosus producing spinal stenosis in the central area at L1-L2. 3. Hypothyroidism. 4. History of Graves' disease, status post thyroidectomy. 5. History of ulcerative colitis. 6. Degenerative osteoarthritis. 7. Obesity. 8. Post-lap band placement, unable to use nonsteroidal anti-inflammatory medications. 9. Myofascial pain. RECOMMENDATIONS: We discussed treatment options with the patient. At this juncture, she feels medications are working reasonably well. She has had no complications with them. Things are going well. She has not shown any signs of addiction. She is aware that opioid medications can become less effective as time goes on, secondary development of tolerance. Overall, things are going reasonably well. She is able to engage in activities of daily living with less discomfort. Feels things are 50-60% improved with her current medical regimen. She is aware that 70,000 people as a result of overdose last year. She keeps her medications in a guarded area. She has returned today for renewal. A script for her medications of Percocet 10 mg one p.o. every 4-6 hours, total of 120 have been written. The patient will also continue with cyclobenzaprine 10 mg 1 p.o. t.i.d., total of 90 tablets have been written. We would like to thank you for letting us participate in her care. We hope she continues to improve. <ELECTRONICALLY SIGNED> By: Cathryn Almendarez MD 09/30/19 [id number]. Artemio Almendarez MD /will
== END ==
LOC: M.PC 05:25
DX: M54.16 Radiculopathy, lumbar region (principal); E03.9 Hypothyroidism, unspecified; M19.90 Unspecified osteoarthritis, unspecified site; M79.18 Myalgia, other site; E66.9 Obesity, unspecified

== ENCOUNTER → 2019-10-13 | Outpatient (CLI) | payer OTHER ==
[~2019-10-13] MED LIST changes: +AMITRIPTYLINE H10 M3 PO
--- NOTE | ~2019-10-13 | PAINCON ---
[address] [address] PAIN MANAGEMENT CONSULTATION Name: DANIELLEMEL K Room: [facility] VioletteBakariJadeBakari#: [id number] Admission: 10/13/19 Attend Phys: Cathryn Almendarez MD Discharge: Date of : 66 Report #: [id number] THIS REPORT FOR: //name// CC: Cathryn Key DO DATE OF SERVICE: 10/13/2019 CHIEF COMPLAINT: "The medications were helpful." HISTORY: The patient is a 48-year-old female. She has been followed in the pain clinic. She has chronic pain in her mid and low back area. She has had pain that radiates down into her legs. Pain has gone on for a number of years. Right leg is most problematic at this point. She feels as though there is a "hot iron" in her lower extremity. Sometimes experiences some discomfort in the left leg. She has had some episodes where she feels as though her back is locked up. Does find that Percocet can be helpful with her pain. She rates her pain as a 3/10 today. Also, finds that muscle relaxing medications are beneficial. Feels that her pain is about 50-60% improved with her medications. Has noted some worsening of pain and discomfort over the last few weeks. Activity such as walking, sitting, standing, bending and lifting can be problematic. She does work long hours standing at her job. ALLERGIES: PENICILLIN, ERYTHROMYCIN, AZITHROMYCIN, TAPE. CURRENT MEDICATIONS: Levothyroxine 0.125 mg, lisinopril 20 mg, oxycodone 10 mg one p.o. q.i.d., tizanidine 4 mg 1 t.i.d. to q.i.d. PAIN CLINIC ASSESSMENT AND PQRS: 1. The patient is not being treated for rheumatoid arthritis. She does have osteoarthritic changes in her low back with stenosis. 2. Height 5 feet 5 inches, weight 239 pounds, BMI is 39, height 5 feet 5 inches. 3. Vital signs: Blood pressure 114/72, heart rate 95, respiratory rate 16, room air saturation is 100%, temperature 98.1. 4. Pain intensity 12/21. 5. Fall history: The patient has not fallen in the last 3 months. 6. Blood thinner. The patient is not on a blood thinning medication. 7. Hypertension. The patient is being treated for hypertension. 8. Opioids greater than 6 weeks. The patient received medication from [facility]. 9. Risk assessment tool, low for opioid use. 10. Functional assessment tool, low for opioid use. 11. Recreational drug use: The patient denies. 12. Tobacco: [place] [address] PAIN MANAGEMENT CONSULTATION Name: CARMEN SANTOSEmy Webb Room: [facility]#: [id number] Admission: 10/13/19 Attend Phys: Cathryn Almednarez MD Discharge: Date of : 66 Report #: [id number] 13. Alcohol. The patient rarely drinks alcoholic beverages. PHYSICAL EXAMINATION: GENERAL: The patient is a well-developed, well-nourished, slightly obese white female. Appears her stated age. She is alert and oriented x 3. Her affect is appropriate. Speech is fluent. HEENT: Normocephalic, atraumatic. Extraocular eye muscles intact. The patient is wearing glasses. NECK: Without adenopathy or JVD. HEART: Regular rate. ABDOMEN: Nontender. LUNGS: Generally clear to auscultation. SKIN: Notes some discoloration on her hands, which is associated with vitiligo. IMPRESSION: 1. Lumbar radiculopathy in the L4-L5 dermatomal distribution with mass effect upon the thecal sac. 2. Epidural lipomatosis producing spinal stenosis in the central area at L1-L2. 3. Hypothyroidism. 4. History of Graves' disease, status post thyroidectomy. 5. History of ulcerative colitis. 6. Degenerative osteoarthritis. 7. Obesity. 8. Post-lap band placement, unable to take nonsteroidal anti-inflammatory medications. 9. Myofascial pain. RECOMMENDATIONS: We discussed treatment options with the patient. Risks and benefits of opioid medications were again reviewed. The patient is aware of the possible complication of these medications. They can become less effective as time goes on. The patient has not shown any signs of addiction. She is taking the medications as prescribed. She feels that her pain medications provide 50-60% improvement. Overall, things are going reasonably well and she would like to continue with her medications. She keeps her medications in a guarded area. A script for her medications will be rewritten. The patient will continue with Percocet 1 p.o. 10 mg q. 4-6 hours p.r.n. pain, total of 120 tablets have been provided. The patient will also continue with the muscle relaxant, cyclobenzaprine 10 mg 1 p.o. t.i.d. Total of 90 tablets have been written. We would like to thank you for letting us participate in her care. She will call us if she has any concerns. By: [id number]. Artemio Almendarez MD /nt
== END ==
LOC: M.PC 04:28
DX: M54.16 Radiculopathy, lumbar region (principal); E03.9 Hypothyroidism, unspecified; M19.90 Unspecified osteoarthritis, unspecified site; E66.09 Other obesity due to excess calories; M79.18 Myalgia, other site

== ENCOUNTER → 2019-11-12 | Outpatient (CLI) | payer OTHER ==
[~2019-11-12] MED LIST changes: +AMITRIPTYLINE H25 M2 PO; +HYDROXYZINE HCL50 MG PO; +TREMFYA100 MG/11 SUBQ
--- NOTE | ~2019-11-12 | PAINCON ---
[address] [address] PAIN MANAGEMENT CONSULTATION Name: DANIELLEMEL K Room: [facility] SOFYA Swartz#: [id number] Admission: 11/12/19 Attend Phys: Cathryn Almendarez MD Discharge: Date of : 66 Report #: [id number] THIS REPORT FOR: //name// CC: Cathryn Key DATE OF SERVICE: 11/12/2019 The patient was seen on 1:30. CHIEF COMPLAINT: Here for medication renewal, things are going relatively well and the medication continues to help. HISTORY: The patient is a 48-year-old female who has been followed in the pain clinic because of chronic pain involving her back. The patient has pain that radiates down into her legs. She has had pain and back problems for a number of years. She has undergone epidural steroid injections and found them to be helpful. At this juncture, she feels that her opioid medications continue to be beneficial. 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 She is on new medications Tremfya. This medication has the possibility of decreasing her immune status. She declines an epidural injection at this juncture, because of the diminished immune function. She may consider it again in the future. Finds that the amitriptyline medication is helping with discomfort as well as sleep. She is not having any problems with mentation. She is thinking clearly. The patient finds that the Flexeril is helpful with muscle spasms as well. She has taken the Percocet and finds overall that her medication management is about 70% effective in helping with her pain. Describes pain and discomfort with walking, sitting, standing, bending, and lifting. Use of medications. Use of cold as well as rest are helpful. She stands for long periods of time at work. ALLERGIES: PENICILLIN, ERYTHROMYCIN, AZITHROMYCIN, TAPE. CURRENT MEDICATIONS: Levothyroxine 0.125 mg, lisinopril 20 mg, oxycodone 10 mg 1 p.o. q.i.d., tizanidine 4 mg 1 p.o. t.i.d. to q.i.d., Tremfya IV weekly to monthly. PAIN CLINIC ASSESSMENT/PQRS: 1. The patient is not being treated for rheumatoid arthritis. She does have osteoarthritic changes in her back with stenosis. 2. Height 5 feet 5 inches, weight 248 pounds, BMI is 39.9. 3. Vital signs: Blood pressure 104/72, heart rate 98, respiratory rate 16, room air saturation, temperature 97.9. 4. Pain intensity 10/23. 5. Fall history: The patient has not fallen in the last 3 months. 6. Blood thinner. The patient is not on [place] [address] PAIN MANAGEMENT CONSULTATION Name: DANIELLECARMENEmy Webb Room: [facility]#: [id number] Admission: 11/12/19 Attend Phys: Cathryn Almendarez MD Discharge: Date of : 66 Report #: [id number] 7. Hypertension. The patient is being treated for hypertension. 8. Opioids greater than 6 weeks. The patient receives from [facility]. 9. Risk assessment tool, low for opioid use. 10. Functional assessment tool, low for opioid use. 11. Recreational drug use: The patient denies. 12. Tobacco: The patient denies. 13. Alcohol. The patient denies frequent use of alcoholic beverages except on rare occasion. PHYSICAL EXAMINATION: GENERAL: The patient is a well-developed, well-nourished white female. Appears her stated age. She is alert and oriented x 3. Her affect is appropriate. Speech is fluent. HEAD, EYES, EARS, NOSE, AND THROAT: Normocephalic, atraumatic. Extraocular eye muscles intact. Sclerae nonicteric. Mucous membranes are moist. NECK: Without adenopathy or JVD. HEART: Regular rate. ABDOMEN: Nontender. LUNGS: Clear. SKIN: The patient has some discoloration on her hands associated with . IMPRESSION: 1. Lumbar radiculopathy at the L4-L5 dermatomal distribution with mass effect upon the thecal sac. 2. History of epidural lipomatosis producing spinal stenosis in the central area at L1-L2. 3. Hypothyroidism. 4. History of Graves' disease, status post thyroidectomy. 5. History of ulcerative colitis. 6. Degenerative osteoarthritis. 7. Obesity. 8. Post-lap band placement, unable to take nonsteroidal anti-inflammatory medications. 9. Myofascial pain. RECOMMENDATIONS: We discussed treatment options with the patient. At this juncture, we will continue with her amitriptyline. She will continue with 25 mg at bedtime. She will also continue with Flexeril 10 mg 1 p.o. t.i.d. The patient will continue with oxycodone 10 mg one p.o. every 4-6 hours p.r.n. The patient takes 100 mg monthly for psoriasis. Hydroxyzine 50 mg every 6 hours p.r.n. The patient will call us if she has any concerns. She is aware that opioid medications can become less effective as time goes on. She does not show any signs of addiction. 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 [facility] [address] [place] [address] PAIN MANAGEMENT CONSULTATION Name: MEL SANTOS Room: [facility]#: [id number] Admission: 11/12/19 Attend Phys: Cathryn Almendarez MD Discharge: Date of : 66 Report #: [id number] We would like to thank you for letting us to participate in her care. We hope she continues to improve. By: 0930 [id number]. Artemio Almendarez MD /PMT
== END ==
LOC: M.PC 08:20
DX: M54.16 Radiculopathy, lumbar region (principal); E03.9 Hypothyroidism, unspecified; M19.90 Unspecified osteoarthritis, unspecified site; E66.9 Obesity, unspecified; M79.18 Myalgia, other site

== ENCOUNTER → 2019-12-10 | Outpatient (CLI) | payer OTHER ==
[~2019-12-10] MED LIST changes: +BUSPIRONE HCL10 MG PO; +PERCOCET 10-321 EAC1 PO
--- NOTE | 2019-12-29 08:57 | PAINCON ---
[address] [address] PAIN MANAGEMENT CONSULTATION Name: CARMEN SANTOSI Tracey Room: [facility] Rui.#: [id number] Admission: 12/10/19 Attend Phys: Cathryn Almendarez MD Discharge: Date of : 66 Report #: [id number] THIS REPORT FOR: //name// cc: Anisa Key Stephanie P. DO ~ THIS REPORT FOR: //name// CC: Cathryn Key DO DATE OF SERVICE: 12/10/2019 PRIMARY CARE PHYSICIAN: Anisa Key DO CHIEF COMPLAINT: Chronic back pain. HISTORY OF PRESENT ILLNESS: The patient is a 48-year-old female, who has been followed in the pain clinic. As you may recall, she has chronic low back pain. Continues to have pain that radiates down into her legs. This has been problematic for a number of years. She has undergone epidural steroid injections. She also is treated for psoriasis. She has been told that she has inverted psoriasis. She feels that her immune function is somewhat diminished. She does not want an epidural steroid injection at this point. Overall, she feels that with her current management, her pain is about 70% improved. She would like to continue with her medications. Pain is worse with walking, standing, climbing stairs, bending and lifting. She notes that cold pack as well as rest can be beneficial to the low back area and pain, which she experiences down her left leg. Things are going reasonably well. She rates her pain as a 1/10 today. She is contemplating going on vacation to [place]. ALLERGIES: PENICILLIN, ERYTHROMYCIN, AZITHROMYCIN, TAPE. CURRENT MEDICATIONS: Levothyroxine 0.125 mg, lisinopril 20 mg, oxycodone 10 mg 1 p.o. q.i.d., tizanidine 4 mg 1 p.o. t.i.d. to q.i.d., Tremfya IV weekly to monthly. PAIN CLINIC ASSESSMENT/PQRS: 1. The patient is not being treated for rheumatoid arthritis. She does have osteoarthritic changes in her back with stenosis. 2. Height 5 feet 5 inches, weight 239 pounds, BMI is 39.9. 3. Vital signs: Blood pressure 132/90, heart rate 104, respiratory rate 16, room air saturation 95%, temperature 99.2. 4. Pain intensity 1/10. 5. Fall history: The patient has not fallen in the last 3 months. 6. Blood thinner. The patient is not on a blood[place] [address] PAIN MANAGEMENT CONSULTATION Name: MEL SANTOS Room: [facility]#: [id number] Admission: 12/10/19 Attend Phys: Cathryn Almendarez MD Discharge: Date of : 66 Report #: [id number] 7. Hypertension. The patient is being treated for hypertension. 8. Opioids greater than 6 weeks. 9. The patient receives her [facility]. 10. Risk assessment tool: Low for opioid use. 11. Functional assessment tool: Low for opioid. 12. Recreational drug use: The patient denies. 13. Tobacco: The patient denies. 14. Alcohol. The patient denies frequent use of alcoholic beverages except on rare occasions. PHYSICAL EXAMINATION: GENERAL: The patient is a well-developed, well-nourished white female. Appears her stated age. She is alert and oriented x 3. Her affect is appropriate. Speech is fluent. HEENT: Normocephalic, atraumatic. Extraocular eye muscles are intact. Sclerae are nonicteric. Mucous membranes are moist. NECK: Without adenopathy or JVD. HEART: Regular rate. ABDOMEN: Nontender. LUNGS: Clear. SKIN: The patient has some discoloration in her hand, which may be vitiligo. IMPRESSION: 1. Lumbar radiculopathy, L4-L5 dermatomal distribution, with mass effect upon the thecal sac. 2. History of epidural lipomatosis producing spinal stenosis in the central area at L1-L2. 3. Hypothyroidism. 4. History of Graves disease, status post thyroidectomy. 5. History of ulcerative colitis. 6. Degenerative osteoarthritis. 7. Obesity. 8. Post laparoscopic band placement, unable to take nonsteroidal anti-inflammatory medications. 9. Myofascial pain. RECOMMENDATIONS: We discussed treatment options with the patient. At this juncture, we will continue with her medications. She feels that these medications overall are helpful. She is about 70% improved. She is not having any significant mental problems. She is able to think clearly. 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 The patient has been treated for the psoriasis with Tremfya. She will continue with Flexeril 10 mg 1 p.o. t.i.d. A script for oxycodone 10 mg 1 p.o. q.4-6 hours have been provided. The patient will also use Elavil 25 mg 2 tablets at bedtime to help with pain as well as relaxation. [place] [address] [place] [address] PAIN MANAGEMENT CONSULTATION Name: MEL SANTOS Room: [facility]#: [id number] Admission: 12/10/19 Attend Phys: Cathryn Almendarez MD Discharge: Date of : 66 Report #: [id number] We would like to thank you for letting us participate in her care. She will call us if she has any concerns. Hopefully, she will reconsider traveling to [place] given the coronavirus outbreak that is prevalent. We would like to thank you for letting us participate in her care. We hope she continues to improve. <ELECTRONICALLY SIGNED> By: Cathryn Almendarez MD 12/29/19 [id number]. Artemio Almendarez MD /nt
== END ==
LOC: M.PC 08:05
DX: M54.12 Radiculopathy, cervical region (principal); E03.9 Hypothyroidism, unspecified; M19.90 Unspecified osteoarthritis, unspecified site; E66.09 Other obesity due to excess calories; M79.18 Myalgia, other site; Z79.891 Long term (current) use of opiate analgesic

== ENCOUNTER → 2020-01-07 | Outpatient (CLI) | payer OTHER ==
--- NOTE | 2020-01-08 09:01 | PAINCON ---
[address] [address] PAIN MANAGEMENT CONSULTATION Name: MEL SANTOS Room: [facility] Rui.#: [id number] Admission: 01/07/20 Attend Phys: Cathryn Almendarez MD Discharge: Date of : 66 Report #: [id number] THIS REPORT FOR: //name// cc: Anisa Key Stephanie P. DO ~ THIS REPORT FOR: //name// CC: Cathryn Key DO DATE OF SERVICE: 01/07/2020 The patient was seen on 01/06, by Dr. Artemio Almendarez. PRIMARY PHYSICIAN: Anisa Key DO CHIEF COMPLAINT: My pain is little bit worse because I have been working longer hours standing on my feet. HISTORY: The patient is a 49-year-old female, who has been followed in the pain clinic. She has a history of chronic back pain. She has pain that radiates down into her legs. This has been problematic for a number of years. Epidural steroid injections have been tried. The patient also has psoriasis. She has been told that she has inverted psoriasis. She declines an epidural steroid injection at this point. Feels that her current medications of amitriptyline, Flexeril, and Percocet have been helpful. She rates her pain as a 1/10 today. Sitting, walking, standing, bending, and lifting can exacerbate her discomfort. She has returned today for renewal of the medications. ALLERGIES: PENICILLIN, ERYTHROMYCIN, AZITHROMYCIN, AND TAPE. CURRENT MEDICATIONS: Levothyroxine 0.125 mg, lisinopril 20 mg, oxycodone 10 mg p.o. q.i.d., tizanidine 4 mg 1 p.o. t.i.d. to q.i.d., and Tremfya IV weekly to monthly. PAIN CLINIC ASSESSMENT AND PQRS: 1. The patient is not being treated for rheumatoid arthritis. The patient does have some osteoarthritic changes in her back with stenosis. 2. Height 5 feet 5 inches, weight 243 pounds, and BMI is 40.0. 3. Vital signs: Blood pressure 115/74, heart rate 83, respiratory rate 16, room air saturation 97%, and temperature is 97.3. 4. Pain intensity is 1/10. 5. Fall history. The patient has not fallen in the last 3 months. 6. Blood thinner. The patient is not on a blood thinning medication. 7. Hypertension. The patient is being [place] [address] PAIN MANAGEMENT CONSULTATION Name: DANIELLECARMENEmy Webb Room: [facility]#: [id number] Admission: 01/07/20 Attend Phys: Cathryn Almendarez MD Discharge: Date of : 66 Report #: [id number] 8. Opioids greater than 6 weeks. The patient received medication from [facility], the pain clinic. 9. Risk assessment tool, low for opioid use. 10. Functional assessment tool reviewed. 11. Recreational drug use. The patient denies. 12. Tobacco. The patient denies. 13. Alcohol. The patient denies frequent use of alcoholic beverages. PHYSICAL EXAMINATION: GENERAL: The patient is a well-developed, well-nourished white female. Appears her stated age. She is alert and oriented x3. Her affect is appropriate. Speech is fluent. HEENT: Normocephalic, atraumatic. Extraocular eye muscles are intact. Sclerae nonicteric. Mucous membranes are moist. NECK: Without adenopathy or JVD. HEART: Regular rate. ABDOMEN: Nontender. LUNGS: Generally clear. SKIN: Some discoloration of her hands, which may be consistent with vitiligo. IMPRESSION: 1. Lumbar radiculopathy, L4-L5 dermatomal distribution with mass effect on the thecal sac. 2. History of epidural lipomatosus producing spinal stenosis in the central canal at L1-L2. 3. Hypothyroidism. 4. History of Graves' disease, status post thyroidectomy. 5. History of ulcerative colitis. 6. Degenerative osteoarthritis. 7. Obesity. 8. Post laparoscopic band placement, unable to use nonsteroidal anti-inflammatory medication. 9. Myofascial pain. RECOMMENDATIONS: We discussed treatment options with the patient. At this juncture, we will continue with her medication. She feels that the amitriptyline medication in conjunction with Percocet continued to be helpful. We will renew her medications. The patient is aware that opioid medications can become less effective as time goes on secondary to development of tolerance. She is not showing signs of problems with her medications. She is using the medication as prescribed. She has been taking the medications in an director of golf fashion. At this juncture, we will have the patient follow up in a bimonthly method. She has been given a script for 2 months of medications. She will call us if she has any concerns. We would like to thank you for letting us participate in her care. We hope she [address] [address] PAIN MANAGEMENT CONSULTATION Name: MEL SANTOS Room: [facility]#: [id number] Admission: 01/07/20 Attend Phys: Cathryn Almendarez MD Discharge: Date of : 66 Report #: [id number] continues to improve. Thank you very much for proofreading the dictation. <ELECTRONICALLY SIGNED> By: Cathryn Almendarez MD 01/08/20 0901 [id number]. Artemio Almendarez MD /nt
== END ==
LOC: M.PC 02:46
DX: M54.16 Radiculopathy, lumbar region (principal); E03.9 Hypothyroidism, unspecified; M47.819 Spondylosis without myelopathy or radiculopathy, site unspecified; E66.9 Obesity, unspecified; M79.18 Myalgia, other site; Z87.11 Personal history of peptic ulcer disease; Z87.39 Personal history of other diseases of the musculoskeletal system and connective tissue

== ENCOUNTER → 2020-02-25 | Outpatient (CLI) | payer OTHER ==
--- NOTE | ~2020-02-25 | PAINCON ---
[address] [address] PAIN MANAGEMENT CONSULTATION Name: DANIELLEMEL K Room: [facility] Rui.#: [id number] Admission: 02/25/20 Attend Phys: Cathryn Almendarez MD Discharge: Date of : 66 Report #: [id number] THIS REPORT FOR: //name// cc: Anisa Key Stephanie P. DO ~ THIS REPORT FOR: //name// CC: Cathryn Key DATE OF SERVICE: 02/25/2020 PRIMARY CARE PHYSICIAN: Anisa Key DO CHIEF COMPLAINT: "Medication is working pretty well, still having some pain in the back and legs." HISTORY: The patient is a 49-year-old female who has been followed in the pain clinic because of chronic pain. She has a history of chronic back pain. Her pain continues to be problematic. It continues to radiate down into her legs. She has had epidural steroid injections. She finds that her current medical regimen is helpful. She would like to continue with the medication. She rates her pain as 1/10. She feels things are about 50% improved with her current medical regimen. These medications make her life more tolerable. She is able to work longer hours. She notes that prolonged sitting, standing, climbing stairs, lifting and bending is problematic. She has used medications as prescribed. She is not having any problems. She has returned to the pain clinic for renewal of her medications. ALLERGIES: PENICILLIN, ERYTHROMYCIN, AZITHROMYCIN, TAPE. CURRENT MEDICATIONS: Levothyroxine 0.125 mg, lisinopril 20 mg, oxycodone 10 mg q.i.d., tizanidine 4 mg 1 p.o. t.i.d. to q.i.d., Tremfya IV weekly to monthly. PAIN CLINIC ASSESSMENT/PQRS: 1. The patient is not being treated for rheumatoid arthritis. The patient does have some osteoarthritic changes in her back with stenosis. 2. Height 5 feet 5 inches, weight 241 pounds, BMI is 40. 3. Vital signs: Blood pressure 114/73, heart rate 117, respiratory rate 18, room air saturation 99%, temperature 99. 4. Pain intensity 10/23. 5. Fall history: The patient has not fallen in the last 3 months. 6. Blood thinner. The patient is not on a blood thinning medication. 7. Hypertension. The patient is being treated for hypertension. 8. Opioids greater than 6 weeks. The patient receives medication [place] [address] PAIN MANAGEMENT CONSULTATION Name: MEL SANTOS Room: [facility]#: [id number] Admission: 02/25/20 Attend Phys: Cathryn Almendarez MD Discharge: Date of : 66 Report #: [id number] 9. Risk assessment tool, low for opioid use. 10. Functional assessment tool reviewed. 11. Recreational drug use. The patient denies. 12. Tobacco: The patient denies. 13. Alcohol: The patient denies frequent use of alcoholic beverages. PHYSICAL EXAMINATION: GENERAL: The patient is a well-developed, well-nourished white female. Appears her stated age. She is alert and oriented x 3. Her affect is appropriate. Speech is fluent. HEENT: Normocephalic, atraumatic. Extraocular eye muscles intact. Sclerae nonicteric. Mucous membranes are moist. The patient is wearing a mask. NECK: Without adenopathy or JVD. HEART: Regular rate. ABDOMEN: Nontender. LUNGS: Clear. SKIN: Some discoloration of her hands, which is consistent with vitiligo. IMPRESSION: 1. Lumbar radiculopathy, L4-L5 dermatomal distribution with mass effect on the thecal sac. 2. History of epidural lipomatosis producing spinal stenosis in the central canal at L1-L2. 3. Hypothyroidism. 4. History of Graves' disease, status post thyroidectomy. 5. History of ulcerative colitis. 6. Degenerative osteoarthritis. 7. Obesity. 8. Post laparoscopic band placement, unable to use nonsteroidal anti-inflammatory medications. 9. Myofascial pain. RECOMMENDATIONS: We discussed treatment options with the patient. At this juncture, we will continue with her medications. Medications continue to be helpful. She will call us if she has any problems with her medications. She is aware that opioid medications can become less effective over time because of development of tolerance. The patient is unable to take nonsteroidal anti-inflammatory medications on a regular basis because of her GI history. We will renew her medications of oxycodone 10 mg one p.o. q. 4-6 hours. The patient will also continue with amitriptyline 25 mg 2 tablets at bedtime. She will take Flexeril 10 mg 1 p.o. t.i.d. as needed for muscle spasms. She feels that her pain is about 50% improved with her current regimen. [facility] [address] [facility] [place] [address] PAIN MANAGEMENT CONSULTATION Name: MEL SANTOS Room: [facility].#: [id number] Admission: 02/25/20 Attend Phys: Cathryn Almendarez MD Discharge: Date of : 66 Report #: [id number] We would like to thank you for letting us participate in her care. She will continue to stay in sheltering at home given the COVID-19 pandemic. By: [id number]. Artemio Almendarez MD /JOEL
== END ==
LOC: M.PC 08:16
DX: M54.16 Radiculopathy, lumbar region (principal); M79.604 Pain in right leg; M79.605 Pain in left leg; E03.9 Hypothyroidism, unspecified; M19.90 Unspecified osteoarthritis, unspecified site; M79.18 Myalgia, other site; I10 Essential (primary) hypertension; F11.20 Opioid dependence, uncomplicated; E66.9 Obesity, unspecified; Z86.39 Personal history of other endocrine, nutritional and metabolic disease; Z87.19 Personal history of other diseases of the digestive system; Z46.51 Encounter for fitting and adjustment of gastric lap band; Z88.0 Allergy status to penicillin; Z88.5 Allergy status to narcotic agent; Z88.8 Allergy status to other drugs, medicaments and biological substances; Z79.899 Other long term (current) drug therapy

== ENCOUNTER → 2020-07-07 | Outpatient (CLI) | payer OTHER ==
[~2020-07-07] MED LIST changes: +MS CONTIN15 MG PO; +VITAMIN D PO
--- NOTE | 2020-07-21 09:35 | PAINCON ---
[address] [address] PAIN MANAGEMENT CONSULTATION Name: CAREMN SANTOSI Tracey [id number] Admission: 07/07/20 Attend Phys: Cathryn Almendarez MD Discharge: Date of : 66 Report #: [id number] THIS REPORT FOR: //name// cc: Anisa Key Stephanie P. DO ~ THIS REPORT FOR: //name// CC: Cathryn Key DO DATE OF SERVICE: 07/07/2020 CHIEF COMPLAINT: Medications are still helpful having some mid to low back pain. HISTORY: The patient is a 52-year-old female who has been followed in the pain clinic. She does have chronic pain involving her back. She notes that there is pain that radiates down her back into the left leg. This has been ongoing for a number of years. She has mid and low back discomfort. The patient was provided with morphine to help with her pain control in the past visit. She did not feel that that medication really did a whole lot. She elects not to take it any longer. She is considering a gastric sleeve for weight loss. She did have a band in place. That failed. She does have pain and discomfort in her hip. She had an x-ray that showed some onset of arthritis. Rates her pain as a 2/10 with her current medical regimen. Notes that activities, walking, sitting, standing, lifting and bending can be problematic. Cold, rest and medications, improve her discomfort. ALLERGIES: PENICILLIN, ERYTHROMYCIN, AZITHROMYCIN, TAPE. CURRENT MEDICATIONS: Levothyroxine 0.125 mg, lisinopril 20 mg, oxycodone 10 mg q.i.d., tizanidine 4 mg 1 p.o. t.i.d. to q.i.d., Tremfya IV weekly to monthly, amitriptyline 25 mg 2 tablets at bedtime. The patient is using Flexeril 10 mg t.i.d., Celebrex 200 mg daily. PAIN CLINIC ASSESSMENT AND PQRS: 1. The patient is not being treated for rheumatoid arthritis. The patient does have some osteoarthritic changes in her back with stenosis. 2. Height 5 feet 5 inches, weight 249 pounds, BMI is 41.9. 3. Vital Signs: Blood pressure 127/74, heart rate 99, respiratory rate 18, room air saturation 100%. 4. Pain intensity 98.7. 5. Pain score 2/10. 6. Fall history. The patient has not fallen in the last 3 months. 7. Blood thinner. The patient is not on [place] [address] PAIN MANAGEMENT CONSULTATION Name: DANIELLECARMENEmy Webb Room: [facility]#: [id number] Admission: 07/07/20 Attend Phys: Cathryn Almendarez MD Discharge: Date of : 66 Report #: [id number] 8. Hypertension. The patient is being treated for hypertension. 9. Opioids greater than 6 weeks. The patient receives medication from the pain clinic. 10. Risk assessment tool, low for opioid use. 11. Functional assessment tool reviewed. 12. Recreational drug use. The patient denies. 13. Tobacco: The patient denies. 14. Alcohol. The patient denies use of alcoholic beverages. PHYSICAL EXAMINATION: GENERAL: The patient is a well-developed, well-nourished, somewhat obese white female, appears her stated age. She is alert and oriented x 3. Her affect is appropriate. Speech is fluent. HEENT: Normocephalic, atraumatic. Extraocular eye muscles intact. Sclerae nonicteric. Mucous membranes are moist. The patient is wearing facial covering. HEART: Regular rate. ABDOMEN: Nontender. LUNGS: Generally clear. SKIN: Some discoloration of her hands consistent with vitiligo. IMPRESSION: 1. Lumbar radiculopathy, L4-L5 dermatomal distribution with mass effect on the thecal sac. 2. History of lumbar epidural lipomatosis producing spinal stenosis in the central canal at L1-L2. 3. ____. 4. History of Graves' disease, status post thyroidectomy. 5. History of ulcerative colitis. 6. Degenerative osteoarthritis. 7. Obesity. 8. Post-laparoscopic band placement. 9. Myofascial pain. RECOMMENDATIONS: We discussed treatment options with the patient. Risks and benefits of her medication regimen of opioids were discussed. The patient is aware that these medications can become less effective as time goes on. She has taken her medication as prescribed. She is aware that certain patients have become addicted to these medications and have as a result of overdosing with other medications. She feels her medications are helpful. She would like to continue with their use. She is contemplating a gastric sleeve to help with her weight loss. She did have a bandage in place and that did not work very well. [address] [address] PAIN MANAGEMENT CONSULTATION Name: MEL SANTOS Room: [facility]#: [id number] Admission: 07/07/20 Attend Phys: Cathryn Almendarez MD Discharge: Date of : 66 Report #: [id number] We would like to thank you for letting us participate in her care. We hope she continues to improve. <ELECTRONICALLY SIGNED> By: Cathryn Almendarez MD 07/21/20 0935 1020 0030Cathryn Almendarez MD /nt
== END ==
LOC: M.PC 09:17
PROVIDERS: ATTEND Anesthesiology Pain Medicine
DX: M54.16 Radiculopathy, lumbar region (principal); M79.10 Myalgia, unspecified site; E66.9 Obesity, unspecified; M19.90 Unspecified osteoarthritis, unspecified site; E89.0 Postprocedural hypothyroidism; Z87.19 Personal history of other diseases of the digestive system; Z86.39 Personal history of other endocrine, nutritional and metabolic disease; Z88.8 Allergy status to other drugs, medicaments and biological substances; Z79.899 Other long term (current) drug therapy

== ENCOUNTER → 2020-09-01 | Outpatient (CLI) | payer OTHER ==
--- NOTE | 2020-09-05 11:03 | PAINCON ---
[address] [address] PAIN MANAGEMENT CONSULTATION Name: MEL SANTOS [id number] Admission: 09/01/20 Attend Phys: Cathryn Almendarez MD Discharge: Date of : 66 Report #: [id number] THIS REPORT FOR: //name// cc: Anisa Key Stephanie P. DO ~ CC: Cathryn Key DATE OF SERVICE: 09/01/2020 CHIEF COMPLAINT: Here for medications. I am still thinking about undergoing the gastric sleeve. HISTORY: The patient is a 49-year-old female who has been followed in the pain clinic because of chronic back pain. Still has pain that radiates down into her legs. Left leg is most problematic. She rates her pain as 3-4/10. She has noted some pain on the right side over the last 2-3 days. Feels that the oxycodone, amitriptyline and Flexeril are helpful. She is using Celebrex only on a p.r.n. basis because of her GI problem and continued to be efficacious. She would like to have them renewed today. ALLERGIES: PENICILLIN, ERYTHROMYCIN, AZITHROMYCIN, TAPE. CURRENT MEDICATIONS: Levothyroxine 0.125 mg, lisinopril 20 mg, oxycodone 10 mg q.i.d., tizanidine 4 mg t.i.d. to q.i.d., Tremfya IV weekly to monthly, amitriptyline 25 mg 2 tablets at bedtime. The patient is using Flexeril 10 mg t.i.d., Celebrex 200 mg p.r.n. PAIN CLINIC ASSESSMENT AND PQRS: 1. The patient is not being treated for rheumatoid arthritis. She does have some osteoarthritic changes in her back with stenosis. 2. Height 5 feet 5 inches, weight 249 pounds, BMI is 41. 3. Vital Signs: Blood pressure is 120/88, heart rate 86, respiratory rate 16, room air saturation is 100%, temperature 97.4. 4. Pain intensity, 3-01/21. 5. Fall history. The patient has not fallen in the last 3 months. 6. Blood thinner. The patient is not on a blood thinning medication. 7. Hypertension. The patient is being treated for hypertension. 8. Opioids greater than 6 weeks. The patient receives medication from the pain clinic. 9. Risk assessment tool, low for opioid use. 10. Functional assessment tool, reviewed. 11. Recreational drug use. The patient denies. 12. Tobacco. The patient denies. 13. Alcohol. The patient [place] [address] PAIN MANAGEMENT CONSULTATION Name: MEL SANTOS Room: [facility]#: [id number] Admission: 09/01/20 Attend Phys: Cathryn Almendarez MD Discharge: Date of : 66 Report #: [id number] PHYSICAL EXAMINATION: GENERAL: The patient is a well-developed, well-nourished, white female. She is somewhat obese. She is alert and oriented x 3. Her affect is appropriate. Speech is fluent. HEENT: Normocephalic, atraumatic. Extraocular eye muscles intact. Sclerae nonicteric. Mucous membranes are moist. The patient is wearing a facial covering. NECK: Without adenopathy or JVD. HEART: Regular rate. LUNGS: Clear. ABDOMEN: Protuberant, nontender. SKIN: The patient has some discoloration on her hands consistent with vitiligo. IMPRESSION: 1. Lumbar radiculopathy, L4-L5 dermatomal distribution with mass effect on the thecal sac. 2. History of lumbar epidural lipomatosus producing spinal stenosis in the central canal at L1-L2. 3. History of Graves' disease, status post thyroidectomy. 4. History of ulcerative colitis. 5. Degenerative osteoarthritis. 6. Obesity. 7. Post laparoscopic band placement. 8. Myofascial pain. RECOMMENDATIONS: We discussed treatment options with the patient. At this juncture, we will continue with her medications. She feels the medications continue to be helpful. She is aware that opioid medications can become less effective as time goes on. She is pursuing treatment in regards to the gastric sleeve. She will follow up with her surgeon in September. She will call us if she has any concerns with her medications. A script for her medications of amitriptyline 25 mg 2 tablets at bedtime have been provided. The patient will also continue with Percocet 10/325 1 p.o. q.4 hours p.r.n., total of 120 tablets. She will call us if she has any concerns. We would like to thank you for letting us participate in her care. We hope she continues to improve. <ELECTRONICALLY SIGNED> By: Cathryn Almendarez MD 09/05/20 1103 0843 [id number]. Artemoi Almendarez MD /JOEL
== END ==
LOC: M.PC 07:43
PROVIDERS: ATTEND Anesthesiology Pain Medicine
DX: G89.29 Other chronic pain (principal); M54.16 Radiculopathy, lumbar region; I10 Essential (primary) hypertension; M53.86 Other specified dorsopathies, lumbar region; M19.90 Unspecified osteoarthritis, unspecified site; M79.18 Myalgia, other site; E66.9 Obesity, unspecified; Z88.0 Allergy status to penicillin; Z88.8 Allergy status to other drugs, medicaments and biological substances; Z68.41 Body mass index [BMI] 40.0-44.9, adult; Z98.890 Other specified postprocedural states; Z79.891 Long term (current) use of opiate analgesic; Z79.899 Other long term (current) drug therapy

== ENCOUNTER → 2020-10-27 | Outpatient (CLI) | payer OTHER | LOC: M.PC 07:47 | PROVIDERS: ATTEND Anesthesiology Pain Medicine | DX: M48.061 Spinal stenosis, lumbar region without neurogenic claudication (principal); M54.16 Radiculopathy, lumbar region; E88.2 Lipomatosis, not elsewhere classified; E05.00 Thyrotoxicosis with diffuse goiter without thyrotoxic crisis or storm; M19.90 Unspecified osteoarthritis, unspecified site; E66.9 Obesity, unspecified; M79.10 Myalgia, unspecified site; Z79.891 Long term (current) use of opiate analgesic ==

== ENCOUNTER → 2020-12-22 | Outpatient (CLI) | payer OTHER | LOC: M.PC 07:30 | PROVIDERS: ATTEND Anesthesiology Pain Medicine | DX: M54.16 Radiculopathy, lumbar region (principal); E66.9 Obesity, unspecified; M79.10 Myalgia, unspecified site; M19.90 Unspecified osteoarthritis, unspecified site; Z46.51 Encounter for fitting and adjustment of gastric lap band; Z87.19 Personal history of other diseases of the digestive system; Z88.8 Allergy status to other drugs, medicaments and biological substances; Z86.39 Personal history of other endocrine, nutritional and metabolic disease; Z79.899 Other long term (current) drug therapy ==

== ENCOUNTER → 2021-02-16 | Outpatient (CLI) | payer OTHER ==
[~2021-02-16] MED LIST changes: +OXYCODONE HCL10 MG PO
== END ==
LOC: M.PC 08:17
PROVIDERS: ATTEND Anesthesiology Pain Medicine
DX: M54.16 Radiculopathy, lumbar region (principal); M48.061 Spinal stenosis, lumbar region without neurogenic claudication; M19.90 Unspecified osteoarthritis, unspecified site; E66.9 Obesity, unspecified; Z79.899 Other long term (current) drug therapy; Z88.8 Allergy status to other drugs, medicaments and biological substances; Z88.0 Allergy status to penicillin

== ENCOUNTER → 2021-04-06 | Outpatient (CLI) | payer OTHER ==
[~2021-04-06] MED LIST changes: +LEVSIN0.125 MG PO
== END ==
LOC: M.PC 08:50
PROVIDERS: ATTEND Anesthesiology Pain Medicine
DX: G89.29 Other chronic pain (principal); M54.16 Radiculopathy, lumbar region; I10 Essential (primary) hypertension; M19.90 Unspecified osteoarthritis, unspecified site; E66.9 Obesity, unspecified; M79.18 Myalgia, other site; M53.86 Other specified dorsopathies, lumbar region; E89.0 Postprocedural hypothyroidism; Z68.41 Body mass index [BMI] 40.0-44.9, adult; Z90.710 Acquired absence of both cervix and uterus; Z88.0 Allergy status to penicillin; Z88.8 Allergy status to other drugs, medicaments and biological substances; Z79.891 Long term (current) use of opiate analgesic; Z79.899 Other long term (current) drug therapy; Z86.39 Personal history of other endocrine, nutritional and metabolic disease; Z87.19 Personal history of other diseases of the digestive system

== ENCOUNTER → 2021-05-30 | Outpatient (CLI) | payer OTHER | LOC: M.PC 11:19 | PROVIDERS: ATTEND Anesthesiology Pain Medicine | DX: M54.16 Radiculopathy, lumbar region (principal); E88.2 Lipomatosis, not elsewhere classified; E05.00 Thyrotoxicosis with diffuse goiter without thyrotoxic crisis or storm; M19.90 Unspecified osteoarthritis, unspecified site; M79.10 Myalgia, unspecified site; Z79.899 Other long term (current) drug therapy; Z79.891 Long term (current) use of opiate analgesic ==

== ENCOUNTER → 2021-07-06 | Outpatient (CLI) | payer OTHER ==
[~2021-07-06] MED LIST changes: +BUTRANS1 EACH INTRADERM; +IRON325 M1 PO
== END ==
LOC: M.PC 09:56
PROVIDERS: ATTEND Anesthesiology Pain Medicine
DX: M54.16 Radiculopathy, lumbar region (principal); M19.90 Unspecified osteoarthritis, unspecified site; E66.9 Obesity, unspecified; M79.18 Myalgia, other site; M48.00 Spinal stenosis, site unspecified; E05.00 Thyrotoxicosis with diffuse goiter without thyrotoxic crisis or storm; Z79.899 Other long term (current) drug therapy

== ENCOUNTER → 2021-08-31 | Outpatient (CLI) | payer OTHER ==
[~2021-08-31] MED LIST changes: +BUTRANS1 EAC4 TRANSDERM
== END ==
LOC: M.PC 08:10
PROVIDERS: ATTEND Anesthesiology Pain Medicine
DX: M54.16 Radiculopathy, lumbar region (principal); M48.061 Spinal stenosis, lumbar region without neurogenic claudication; M19.90 Unspecified osteoarthritis, unspecified site; E66.9 Obesity, unspecified; M79.18 Myalgia, other site; E05.00 Thyrotoxicosis with diffuse goiter without thyrotoxic crisis or storm; E89.0 Postprocedural hypothyroidism; K51.90 Ulcerative colitis, unspecified, without complications; Z79.899 Other long term (current) drug therapy; Z98.890 Other specified postprocedural states; Z72.89 Other problems related to lifestyle

== ENCOUNTER → 2021-10-26 | Outpatient (CLI) | payer OTHER ==
[~2021-10-26] MED LIST changes: +TALTZ AUTO80 MG/1 ML SUBQ
== END ==
LOC: M.PC 08:20
PROVIDERS: ATTEND Anesthesiology Pain Medicine
DX: M54.16 Radiculopathy, lumbar region (principal); M48.061 Spinal stenosis, lumbar region without neurogenic claudication; E05.00 Thyrotoxicosis with diffuse goiter without thyrotoxic crisis or storm; M19.90 Unspecified osteoarthritis, unspecified site; E66.9 Obesity, unspecified; M79.18 Myalgia, other site; R63.4 Abnormal weight loss; Z88.0 Allergy status to penicillin; Z88.1 Allergy status to other antibiotic agents; Z88.8 Allergy status to other drugs, medicaments and biological substances; Z79.899 Other long term (current) drug therapy